=== PATIENT | female | born 1950 | race Caucasian/White ===

== ENCOUNTER 2016-12-01 12:08 | Inpatient (IN) | payer SELFPAY ==
[~2016-12-01] VITALS: Ht 157.5 cm; Wt 56.6 kg
[2016-12-01] MEDS ORDERED: FUROSEMIDE 40 MG/4 ML VIAL IV ONE (12:30)
[2016-12-01 12:43] LABS: Basophils # (auto) 0 uL; CONDITION Y; DEFINITIVE SEE PRINTOUT; Eosinophils # (auto) 0 uL; Lymphocytes # (auto) 0.8 uL; Mean Corpuscular Hgb Conc. 33.8 g/dL (32.0-36.0); Monocytes # (auto) 0.5 uL; Neutrophils # (auto) 3.6 uL; Platelet Count (auto) 194 10^3/uL (140-450); White Blood Cell 4.9 10^3/uL (4.4-10.8)
[2016-12-01 12:45] LABS: Basophils % (auto) 0.2 % (0.0-2.0); Eosinophils % (auto) 0.7 % (0.0-7.0); Hematocrit 46.7 % (36.0-46.0); Hemoglobin 15.8 g/dL (12.2-16.2); Lymphocytes % (auto) 16.9 % (10.0-50.0); Mean Corpuscular Hemoglobin 34.9 pg (28.0-32.0); Mean Corpuscular Volume 103.3 fL (80.0-100.0); Mean Platelet Volume 8.6 fL (7.4-10.4); Monocytes % (auto) 9.3 % (0.0-12.0); Neutrophils % (auto) 72.9 % (37.0-80.0); Red Cell Distribution Width 13.4 % (11.6-16.0)
[2016-12-01 13:08] LABS: Albumin 3.3 g/dL (3.4-5.0); BUN/Creatinine Ratio 8.7; Calcium 8.3 mg/dL (8.5-10.1); Magnesium 1.5 mg/dL (1.6-2.6); Potassium 4.2 mmol/L (3.5-5.1)
[2016-12-01 13:13] LABS: Bilirubin, Total 0.9 mg/dL (0.2-1.0); Total Protein 6.4 g/dL (6.4-8.2)
[2016-12-01 13:57] LABS: Urine Bilirubin Negative (Negative); Urine Blood Negative /uL (Negative); Urine Color Yellow (Yellow); Urine Glucose Normal (Normal); Urine Ketone Negative (Negative); Urine Mucus FEW (None Seen); Urine RBC 2 /hpf (0 - 4); Urine Squamous Epithelial Cell FEW /hpf (<5); Urine Urobilinogen Normal (Negative); Urine WBC Clumps PRESENT /hpf (None Seen)
[2016-12-01 13:58] LABS: Urine Nitrite POSITIVE (Negative)
[2016-12-01] MEDS ORDERED: POTASSIUM CHL 20 Meq TABLET PO ONE (14:00)
[2016-12-01] MEDS ORDERED: HYDROcodone-ACET 5/325MG TAB PO PRN (14:15)
[2016-12-01] MEDS ORDERED: MORPHINE SULF INJ 2 MG/ML SYRINGE 1ML IV PRN ×2 (14:15)
[2016-12-01] MEDS ORDERED: ONDANSETRON HCL 4 MG/2 ML VIAL IV PRN (14:15)
[2016-12-01] MEDS ORDERED: LORazepam 0.5 MG TAB PO PRN (14:15)
[2016-12-01] MEDS ORDERED: NITROGLYCERIN 0.4 MG SL TAB SL PRN (14:15)
[2016-12-01] MEDS ORDERED: ACETAMINOPHEN 500 MG TAB PO PRN (14:15)
[2016-12-01] MEDS ORDERED: cefTRIAXone 1GM/50ML D5W 50 ML IV ONE (14:45)
[2016-12-01] MEDS ORDERED: MULTIPLE VITAMIN TAB PO ONE (14:45)
[2016-12-01] MEDS: MAGNESIUM SULFATE 1GM/100ML 100 ML IV SCH ×2 (14:45→18:42)
[2016-12-01] MEDS ORDERED: THIAMINE HCL 100 MG/ML 2ML VIAL IV ONE (14:45)
[2016-12-01] MEDS ORDERED: FOLIC ACID 1 MG in D5W 5% 50 ML IV ONE (14:45)
[2016-12-01] MEDS ORDERED: PANTOPRAZOLE 40 MG TAB PO ONE (14:45)
[2016-12-01] MEDS ORDERED: ENOXAPARIN SOD 30 MG/0.3 ML SYRINGE SC SCH (15:00)
[2016-12-01 16:27] LABS: B-Type Natriuretic Peptide 4421.06 pg/mL (0-100)
[2016-12-01 16:30] LABS: Temperature: 24.6 C (20.0-25.0)
[2016-12-01 20:00] VITALS: BP 101/67
[2016-12-01 22:00] VITALS: BP 101/67
[2016-12-01] MEDS: TEMAZEPAM 15 MG CAP PO PRN (22:07)
[2016-12-02] VITALS (7 sets, daily range): BP systolic 107–121; BP diastolic 67–77
[2016-12-02] MEDS ORDERED: MULTTAB61 PO (00:50)
[2016-12-02] MEDS ORDERED: MISC4CAP PO (00:50)
[2016-12-02] MEDS ORDERED: CYAN100023 PO (00:50)
[2016-12-02 06:15] LABS: Basophils # (auto) 0 uL; Basophils % (auto) 0.7 % (0.0-2.0); CONDITION Y; DEFINITIVE SEE PRINTOUT; Eosinophils # (auto) 0 uL; Hemoglobin 14.9 g/dL (12.2-16.2); Lymphocytes # (auto) 1.5 uL; Lymphocytes % (auto) 36.3 % (10.0-50.0); Mean Corpuscular Hemoglobin 34.6 pg (28.0-32.0); Mean Corpuscular Hgb Conc. 33.1 g/dL (32.0-36.0); Mean Corpuscular Volume 104.4 fL (80.0-100.0); Monocytes # (auto) 0.6 uL; Platelet Count (auto) 174 10^3/uL (140-450); White Blood Cell 4.2 10^3/uL (4.4-10.8)
[2016-12-02 06:25] LABS: INR 1.24 (0.9-1.15); Partial Thromboplastin Time 32.6 sec (22.64-33.71)
[2016-12-02 06:36] LABS: Albumin 2.9 g/dL (3.4-5.0); BUN/Creatinine Ratio 7.9; Bilirubin, Total 1.4 mg/dL (0.2-1.0); Calcium 8.5 mg/dL (8.5-10.1); Magnesium 1.8 mg/dL (1.6-2.6); Potassium 3.4 mmol/L (3.5-5.1); Total Protein 5.7 g/dL (6.4-8.2)
[2016-12-02 06:43] LABS: Prothrombin Time 13.6 sec (9.37-12.3)
[2016-12-02] MEDS: MULTIPLE VITAMIN TAB PO SCH (09:54)
[2016-12-02] MEDS: POTASSIUM CHL 20 Meq TABLET PO SCH (09:55)
[2016-12-02] MEDS: PANTOPRAZOLE 40 MG TAB PO SCH (09:55)
[2016-12-02] MEDS: THIAMINE HCL 100 MG/ML 2ML VIAL IV SCH (09:56)
[2016-12-02] MEDS: cefTRIAXone 1GM/50ML D5W 50 ML IV SCH (09:57)
[2016-12-02] MEDS ORDERED: ENOXAPARIN SOD 40 MG/0.4 ML SYRINGE SC SCH (10:00)
[2016-12-02] MEDS ORDERED: FUROSEMIDE 40 MG/4 ML VIAL IV SCH (10:00)
[2016-12-02] MEDS ORDERED: POTASSIUM CHL 10 Meq TABLET PO ONE (11:45)
[2016-12-02] MEDS ORDERED: PHYTONADIONE (VIT K)10 MG/ML 1ML VIAL SUBCUT ONE (11:45)
[2016-12-02] MEDS: FOLIC ACID 1 MG in D5W 5% 50 ML IV SCH (12:18)
[2016-12-02] MEDS: BOOST PLUS 8 ounce PO SCH ×2 (12:18→18:01)
[2016-12-02] MEDS: FUROSEMIDE 40 MG/4 ML VIAL IV SCH (18:07)
[2016-12-02] MEDS: SPIRONOLACTONE 25 MG TAB PO SCH (18:07)
[2016-12-02] MEDS: CARVEDILOL 3.125 MG TAB PO SCH (21:09)
[2016-12-02] MEDS: TEMAZEPAM 15 MG CAP PO PRN (22:04)
[2016-12-03 05:00] VITALS: BP 103/61
[2016-12-03] MEDS: SPIRONOLACTONE 25 MG TAB PO SCH ×2 (06:02→18:09)
[2016-12-03 07:18] LABS: Basophils # (auto) 0.1 uL; Basophils % (auto) 1.1 % (0.0-2.0); CONDITION Y; DEFINITIVE SEE PRINTOUT; Eosinophils # (auto) 0.1 uL; Eosinophils % (auto) 1.4 % (0.0-7.0); Hemoglobin 16.4 g/dL (12.2-16.2); Lymphocytes # (auto) 1.3 uL; Lymphocytes % (auto) 27.8 % (10.0-50.0); Mean Corpuscular Hemoglobin 34.9 pg (28.0-32.0); Mean Corpuscular Hgb Conc. 33.4 g/dL (32.0-36.0); Mean Corpuscular Volume 104.5 fL (80.0-100.0); Mean Platelet Volume 9.1 fL (7.4-10.4); Monocytes # (auto) 0.5 uL; Monocytes % (auto) 10.9 % (0.0-12.0); Neutrophils # (auto) 2.8 uL; Neutrophils % (auto) 58.8 % (37.0-80.0); Platelet Count (auto) 194 10^3/uL (140-450); Red Cell Distribution Width 13.7 % (11.6-16.0); White Blood Cell 4.8 10^3/uL (4.4-10.8)
[2016-12-03 07:35] LABS: Albumin 3.3 g/dL (3.4-5.0); BUN/Creatinine Ratio 11.1; Bilirubin, Total 1.4 mg/dL (0.2-1.0); Calcium 8.8 mg/dL (8.5-10.1); Potassium 3.5 mmol/L (3.5-5.1); Total Protein 6.5 g/dL (6.4-8.2)
[2016-12-03] MEDS: BOOST PLUS 8 ounce PO SCH ×3 (08:00→18:00)
[2016-12-03] MEDS: FOLIC ACID 1 MG in D5W 5% 50 ML IV SCH (08:51)
[2016-12-03 08:58] VITALS: BP 102/65
[2016-12-03] MEDS: THIAMINE HCL 100 MG/ML 2ML VIAL IV SCH (09:09)
[2016-12-03] MEDS: FUROSEMIDE 40 MG/4 ML VIAL IV SCH ×2 (09:09→18:09)
[2016-12-03] MEDS: POTASSIUM CHL 20 Meq TABLET PO SCH ×2 (09:10→21:36)
[2016-12-03] MEDS: MULTIPLE VITAMIN TAB PO SCH (09:10)
[2016-12-03] MEDS: PANTOPRAZOLE 40 MG TAB PO SCH (09:10)
[2016-12-03] MEDS: cefTRIAXone 1GM/50ML D5W 50 ML IV SCH (09:20)
[2016-12-03 13:00] VITALS: BP 105/66
[2016-12-03] MEDS: ENALAPRIL MALEATE 2.5 MG TAB PO SCH (15:27)
[2016-12-03] MEDS: CARVEDILOL 3.125 MG TAB PO SCH ×2 (15:27→21:36)
[2016-12-03 17:00] VITALS: BP 104/65
[2016-12-03 20:00] VITALS: BP 94/58
[2016-12-03 21:45] VITALS: BP 94/58
[2016-12-04] VITALS (7 sets, daily range): BP systolic 87–138; BP diastolic 47–65
[2016-12-04] MEDS: SPIRONOLACTONE 25 MG TAB PO SCH ×2 (06:25→18:44)
[2016-12-04] MEDS: POTASSIUM CHL 20 Meq TABLET PO SCH ×2 (06:25→22:11)
[2016-12-04 07:33] LABS: Calcium 8.1 mg/dL (8.5-10.1); Potassium 3.3 mmol/L (3.5-5.1)
[2016-12-04 07:48] LABS: B-Type Natriuretic Peptide 4105.74 pg/mL (0-100)
[2016-12-04 07:51] LABS: Temperature: 22.5 C (20.0-25.0)
[2016-12-04] MEDS: FUROSEMIDE 40 MG/4 ML VIAL IV SCH ×2 (08:00→18:44)
[2016-12-04] MEDS: BOOST PLUS 8 ounce PO SCH ×3 (09:25→18:39)
[2016-12-04] MEDS: ENALAPRIL MALEATE 2.5 MG TAB PO SCH (10:00)
[2016-12-04] MEDS: CARVEDILOL 3.125 MG TAB PO SCH ×2 (10:00→22:00)
[2016-12-04] MEDS: cefTRIAXone 1GM/50ML D5W 50 ML IV SCH (10:39)
[2016-12-04] MEDS: THIAMINE HCL 100 MG/ML 2ML VIAL IV SCH (10:40)
[2016-12-04] MEDS: MULTIPLE VITAMIN TAB PO SCH (10:40)
[2016-12-04] MEDS: PANTOPRAZOLE 40 MG TAB PO SCH (10:40)
[2016-12-04] MEDS: FOLIC ACID 1 MG in D5W 5% 50 ML IV SCH (11:06)
[2016-12-04] MEDS ORDERED: POTASSIUM CHL 20 Meq TABLET PO ONE (11:30)
[2016-12-04] MEDS: TEMAZEPAM 15 MG CAP PO PRN (22:11)
[2016-12-05 05:02] VITALS: BP 114/66
[2016-12-05] MEDS: SPIRONOLACTONE 25 MG TAB PO SCH (06:12)
[2016-12-05 07:08] LABS: BUN/Creatinine Ratio 9.7; Calcium 8.8 mg/dL (8.5-10.1)
[2016-12-05 07:15] LABS: Temperature: 22.7 C (20.0-25.0)
[2016-12-05] MEDS: FUROSEMIDE 40 MG/4 ML VIAL IV SCH (08:00)
[2016-12-05] MEDS: BOOST PLUS 8 ounce PO SCH ×2 (08:00→11:43)
[2016-12-05 08:05] VITALS: BP 99/61
[2016-12-05 09:00] VITALS: BP 99/61
[2016-12-05] MEDS: CARVEDILOL 3.125 MG TAB PO SCH (10:00)
[2016-12-05] MEDS: POTASSIUM CHL 20 Meq TABLET PO SCH (10:00)
[2016-12-05] MEDS: ENALAPRIL MALEATE 2.5 MG TAB PO SCH (10:00)
[2016-12-05] MEDS: FOLIC ACID 1 MG in D5W 5% 50 ML IV SCH (10:26)
[2016-12-05] MEDS: PANTOPRAZOLE 40 MG TAB PO SCH (10:26)
[2016-12-05] MEDS: MULTIPLE VITAMIN TAB PO SCH (10:26)
[2016-12-05] MEDS: THIAMINE HCL 100 MG/ML 2ML VIAL IV SCH (10:27)
[2016-12-05 13:00] VITALS: BP 95/60
[2016-12-05] MEDS ORDERED: BENA10TA9 PO (16:12)
[2016-12-05] MEDS ORDERED: POTA20TA53 PO (16:12)
[2016-12-05] MEDS ORDERED: FUR40I IV (16:12)
[2016-12-05] MEDS ORDERED: CAR3125T PO (16:12)
[2016-12-05] MEDS ORDERED: SPIR25TA88 PO (16:12)
[2016-12-05 16:27] VITALS: BP 95/60
== END 2016-12-05 17:34 | disposition home or self-care (01) | DRG 292 ==
LOC: ER 12:08 → TELE 12:09 → TELE-EAST 17:50
PROVIDERS: ADMIT Nurse Practitioner Family; ATTEND Internal Medicine Pulmonary Disease
DX: I50.43 Acute on chronic combined systolic (congestive) and diastolic (congestive) heart failure (principal); I42.6 Alcoholic cardiomyopathy; E87.1 Hypo-osmolality and hyponatremia; E44.0 Moderate protein-calorie malnutrition; I42.0 Dilated cardiomyopathy; N30.00 Acute cystitis without hematuria; Z82.49 Family history of ischemic heart disease and other diseases of the circulatory system; F10.10 Alcohol abuse, uncomplicated; E87.6 Hypokalemia; Z87.891 Personal history of nicotine dependence; K70.30 Alcoholic cirrhosis of liver without ascites; Z71.89 Other specified counseling
CPT/HCPCS: 36415; 71010; 71020; 76604; 76705; 80048; 80053; 81001; 83036; 83735; 83880; 84443; 84484; 85025; 85610; 85730; 87086; 93005; 93306; 94761; 96365; 96368; 96375; J0696; J3430; J7060